=== PATIENT | male | born 1955 | race Caucasian/White ===

== ENCOUNTER 2022-10-14 04:36 | Inpatient (IN) | payer MEDICARE, OTHER ==
[~2022-10-14] VITALS: Ht 182.9 cm; Wt 88.8 kg
[2022-10-14 06:21] LABS: Albumin 3.7 g/dL (3.4-5.0); Calcium 9.1 mg/dL (8.5-10.1); Potassium 3.8 mmol/L (3.5-5.1)
[2022-10-14 06:24] LABS: BUN/Creatinine Ratio 17.6 (10.0-20.0); Bilirubin, Total 0.8 mg/dL (0.2-1.0); Total Protein 7.2 g/dL (6.4-8.2)
[2022-10-14 06:25] LABS: Basophils # (auto) 0.1 10 ^3/uL (0-0.2); Basophils % (auto) 0.4 % (0.0-2.0); Eosinophils # (auto) 0.2 10 ^3/uL (0-0.8); Eosinophils % (auto) 1.3 % (0.0-7.0); Hematocrit 44.9 % (41.0-53.0); Hemoglobin 15.6 g/dL (13.5-17.5); Lymphocytes # (auto) 1.4 10 ^3/uL (0.4-5.4); Lymphocytes % (auto) 9.5 % (10.0-50.0); Mean Corpuscular Hemoglobin 31.8 pg (28.0-32.0); Mean Corpuscular Hgb Conc. 34.7 g/dL (32.0-36.0); Mean Corpuscular Volume 91.5 fL (80.0-100.0); Monocytes # (auto) 1.3 10 ^3/uL (0-1.3); Monocytes % (auto) 9.3 % (0.0-12.0); Neutrophils # (auto) 11.4 10 ^3/uL (1.6-8.6); Neutrophils % (auto) 79.5 % (37.0-80.0); White Blood Cell 14.3 10^3/uL (4.4-10.8)
[2022-10-14] MEDS ORDERED: ONDANSETRON ODT 4 MG TAB PO ONE (07:15)
[2022-10-14] MEDS ORDERED: MAALOX PLUS or MAALOX 30 ML PO ONE (07:15)
[2022-10-14 07:41] LABS: Urine Bacteria NONE SEEN /hpf (None Seen); Urine Blood Negative /uL (Negative); Urine Specific Gravity 1.023 (1.001-1.035); Urine WBC 1 /hpf (0 - 3)
[2022-10-14] MEDS ORDERED: SODIUM CHLORIDE 0.9% 1,000 ML IV ONE (08:30)
[2022-10-14 08:43] LABS: INR 0.97 (0.9-1.15)
[2022-10-14] MEDS: SODIUM CHLORIDE 0.9% 1,000 ML IV SCH ×2 (13:15→22:58)
[2022-10-14] MEDS ORDERED: NITROGLYCERIN 0.4 MG SL TAB SL PRN (13:15)
[2022-10-14] MEDS ORDERED: MORPHINE SULFATE INJ 2 MG/ml SYRG IV PRN ×2 (13:15)
[2022-10-14] MEDS ORDERED: ONDANSETRON HCL 4 MG/2 ML VIAL IV PRN (13:15)
[2022-10-14] MEDS ORDERED: PANTOPRAZOLE 40 MG/10 ML VIAL INJ IV ONE (14:00)
[2022-10-14 14:30] LABS: INR 0.99 (0.9-1.15); Partial Thromboplastin Time 28.3 sec (24.6-33.4)
[2022-10-14] MEDS: metroNIDAZOLE 500MG/100ML 100 ML IV SCH ×2 (14:32→21:38)
[2022-10-14] MEDS: cefTRIAXone 1GM/50ML D5W 50 ML IV SCH (14:32)
[2022-10-14 16:55] LABS: Alcohol, Urine < 3.0 mg/dL (0-10); Amphetamine Screen, Urine NEGATIVE (NEGATIVE); Barbiturate Scree,Urine NEGATIVE (NEGATIVE); Benzodiazephine Screen, Urine NEGATIVE (NEGATIVE); Cannabinoid Screen, Urine NEGATIVE (NEGATIVE); Cocaine Screen, Urine NEGATIVE (NEGATIVE); Opiate Scree,Urine NEGATIVE (NEGATIVE); Phencyclidine Screen, Urine NEGATIVE (NEGATIVE)
[2022-10-14 17:55] VITALS: BP 157/74
[2022-10-14 22:00] VITALS: BP 136/73
[2022-10-15 05:00] VITALS: BP 131/66
[2022-10-15] MEDS: metroNIDAZOLE 500MG/100ML 100 ML IV SCH ×3 (05:34→21:31)
[2022-10-15 06:15] LABS: Basophils # (auto) 0 10 ^3/uL (0-0.2); Basophils % (auto) 0.3 % (0.0-2.0); Eosinophils # (auto) 0.2 10 ^3/uL (0-0.8); Eosinophils % (auto) 1.9 % (0.0-7.0); Hematocrit 41.2 % (41.0-53.0); Hemoglobin 14.3 g/dL (13.5-17.5); Lymphocytes # (auto) 1.7 10 ^3/uL (0.4-5.4); Lymphocytes % (auto) 14.1 % (10.0-50.0); Mean Corpuscular Hemoglobin 32.1 pg (28.0-32.0); Mean Corpuscular Hgb Conc. 34.9 g/dL (32.0-36.0); Mean Corpuscular Volume 92.1 fL (80.0-100.0); Monocytes # (auto) 1.4 10 ^3/uL (0-1.3); Neutrophils # (auto) 8.6 10 ^3/uL (1.6-8.6); Neutrophils % (auto) 71.7 % (37.0-80.0); Red Blood Cells 4.47 10^6/uL (4.5-5.90); Red Cell Distribution Width 12.2 % (11.8-14.3)
[2022-10-15 06:24] LABS: Albumin 2.9 g/dL (3.4-5.0); Calcium 8.1 mg/dL (8.5-10.1); Potassium 3.8 mmol/L (3.5-5.1)
[2022-10-15 06:29] LABS: BUN/Creatinine Ratio 16.8 (10.0-20.0); Bilirubin, Total 1.5 mg/dL (0.2-1.0); Total Protein 6.2 g/dL (6.4-8.2)
[2022-10-15 08:00] VITALS: BP 134/62
[2022-10-15] MEDS: cefTRIAXone 1GM/50ML D5W 50 ML IV SCH (08:49)
[2022-10-15] MEDS: SODIUM CHLORIDE 0.9% 1,000 ML IV SCH ×2 (08:49→21:32)
[2022-10-15 08:53] VITALS: BP 115/54
[2022-10-15] MEDS: PANTOPRAZOLE 40 MG/10 ML VIAL INJ IV SCH (10:42)
[2022-10-15 12:35] VITALS: BP 134/62
[2022-10-15 13:37] LABS: Hepatitis C Antibody Negative (Negative)
[2022-10-15 17:21] VITALS: BP 121/59
[2022-10-15 22:00] VITALS: BP 114/65
[2022-10-16 05:00] VITALS: BP 130/63
[2022-10-16] MEDS: SODIUM CHLORIDE 0.9% 1,000 ML IV SCH ×2 (05:21→14:13)
[2022-10-16] MEDS: metroNIDAZOLE 500MG/100ML 100 ML IV SCH ×3 (05:23→22:26)
[2022-10-16 05:58] LABS: Potassium 3.8 mmol/L (3.5-5.1)
[2022-10-16 06:03] LABS: Albumin 2.7 g/dL (3.4-5.0); BUN/Creatinine Ratio 16.8 (10.0-20.0); Calcium 7.9 mg/dL (8.5-10.1); Total Protein 5.8 g/dL (6.4-8.2)
[2022-10-16 06:25] LABS: Basophils # (auto) 0 10 ^3/uL (0-0.2); Basophils % (auto) 0.5 % (0.0-2.0); Eosinophils # (auto) 0.4 10 ^3/uL (0-0.8); Hematocrit 40.2 % (41.0-53.0); Hemoglobin 13.6 g/dL (13.5-17.5); Lymphocytes # (auto) 1.4 10 ^3/uL (0.4-5.4); Lymphocytes % (auto) 17.7 % (10.0-50.0); Mean Corpuscular Hemoglobin 32.1 pg (28.0-32.0); Mean Corpuscular Hgb Conc. 33.9 g/dL (32.0-36.0); Mean Corpuscular Volume 94.8 fL (80.0-100.0); Monocytes # (auto) 0.9 10 ^3/uL (0-1.3); Monocytes % (auto) 10.6 % (0.0-12.0); Neutrophils # (auto) 5.4 10 ^3/uL (1.6-8.6); Neutrophils % (auto) 66.2 % (37.0-80.0); Nucleated Red Blood Cells % 0.1 %; Red Blood Cells 4.24 10^6/uL (4.5-5.90); White Blood Cell 8.2 10^3/uL (4.4-10.8)
[2022-10-16] MEDS ORDERED: BUPIVACAINE 0.25% INJ 50ML VIAL ONE (06:51)
[2022-10-16] MEDS ORDERED: LIDOCAINE 1%-Mpf/Epinephrine 1:200,000 ONE (06:51)
[2022-10-16] MEDS ORDERED: ceFAZolin 1GM/50ML 100 ML IV ONE (07:16)
[2022-10-16] MEDS ORDERED: SUCCINYLCHOLINE CHLORIDE 20 MG/ML 10ML VIAL IV ONE (07:37)
[2022-10-16] MEDS ORDERED: MIDAZOLAM HCL 2MG/2ML 2ml VIAL (1mg/ml) ONE (07:39)
[2022-10-16] MEDS ORDERED: MEPERIDINE HCL (50 MG/ML) 1 ML VIAL ONE (07:39)
[2022-10-16] MEDS ORDERED: fentaNYL CITRATE 100 MCG/2 ML VL ONE (07:39)
[2022-10-16 08:00] VITALS: BP 146/68
[2022-10-16] MEDS ORDERED: PROPOFOL 10 MG/ML 20 ML IV ONE (08:17)
[2022-10-16] MEDS ORDERED: DexAMETHasone SOD PHOS 10MG/1ML VIAL INJ ONE (08:17)
[2022-10-16] MEDS ORDERED: ONDANSETRON HCL 4 MG/2 ML VIAL ONE (08:31)
[2022-10-16] MEDS ORDERED: ROCURONIUM 10MG/ML 10ML VIAL IV ONE (08:32)
[2022-10-16] MEDS ORDERED: SUGAMMADEX 200mg/2ml Vial (100MG/ML) IV ONE (09:37)
[2022-10-16] MEDS ORDERED: HYDROmorphone HCL 2 MG/ML VL/or syr IV PRN (09:45)
[2022-10-16] MEDS ORDERED: MORPHINE SULFATE 4 MG/ML SYR/VIAL IV PRN (10:15)
[2022-10-16] MEDS ORDERED: hydrALAZINE HCL 20 MG/ML VL IV PRN (10:15)
[2022-10-16] MEDS ORDERED: MIDAZOLAM HCL 2MG/2ML 2ml VIAL (1mg/ml) IV PRN (10:15)
[2022-10-16] MEDS ORDERED: ePHEDrine SULFATE 50 MG/ML AMP IV PRN (10:15)
[2022-10-16] MEDS ORDERED: ONDANSETRON HCL 4 MG/2 ML VIAL IV PRN (10:15)
[2022-10-16] MEDS ORDERED: LABETALOL HCL 5 MG/ML 4ML SYRINGE IV PRN (10:15)
[2022-10-16] MEDS: HYDROmorphone HCL 2 MG/ML VL/or syr IV PRN ×2 (10:57→11:08)
[2022-10-16] MEDS: PANTOPRAZOLE 40 MG/10 ML VIAL INJ IV SCH (11:35)
[2022-10-16] MEDS: cefTRIAXone 1GM/50ML D5W 50 ML IV SCH (11:49)
[2022-10-16 13:00] VITALS: BP 165/73
[2022-10-16] MEDS: HYDROcodone-ACET 5/325MG TAB PO PRN (14:01)
[2022-10-16 16:38] VITALS: BP 157/76
[2022-10-16] MEDS: hydrALAZINE HCL 20 MG/ML VL IV PRN (17:35)
[2022-10-16 18:34] VITALS: BP 147/70
[2022-10-16 22:00] VITALS: BP 150/68
[2022-10-17] VITALS (7 sets, daily range): BP systolic 103–173; BP diastolic 58–76
[2022-10-17] MEDS: SODIUM CHLORIDE 0.9% 1,000 ML IV SCH ×2 (05:45→11:15)
[2022-10-17] MEDS: metroNIDAZOLE 500MG/100ML 100 ML IV SCH ×3 (05:45→21:50)
[2022-10-17 05:49] LABS: Basophils # (auto) 0 10 ^3/uL (0-0.2); Basophils % (auto) 0.1 % (0.0-2.0); Eosinophils # (auto) 0 10 ^3/uL (0-0.8); Eosinophils % (auto) 0.1 % (0.0-7.0); Hematocrit 37.5 % (41.0-53.0); Hemoglobin 12.9 g/dL (13.5-17.5); Mean Corpuscular Hemoglobin 31.8 pg (28.0-32.0); Mean Corpuscular Hgb Conc. 34.4 g/dL (32.0-36.0); Mean Corpuscular Volume 92.4 fL (80.0-100.0); Monocytes % (auto) 6.4 % (0.0-12.0); Neutrophils # (auto) 14.4 10 ^3/uL (1.6-8.6); Neutrophils % (auto) 87.4 % (37.0-80.0); Red Blood Cells 4.06 10^6/uL (4.5-5.90); Red Cell Distribution Width 12.2 % (11.8-14.3); White Blood Cell 16.5 10^3/uL (4.4-10.8)
[2022-10-17 06:21] LABS: Potassium 4.4 mmol/L (3.5-5.1)
[2022-10-17 06:31] LABS: Albumin 2.6 g/dL (3.4-5.0); Bilirubin, Total 0.5 mg/dL (0.2-1.0); Calcium 7.8 mg/dL (8.5-10.1); Total Protein 5.6 g/dL (6.4-8.2)
[2022-10-17] MEDS: HYDROcodone-ACET 5/325MG TAB PO PRN (09:08)
[2022-10-17] MEDS: hydrALAZINE HCL 20 MG/ML VL IV PRN ×2 (09:09→18:18)
[2022-10-17] MEDS: cefTRIAXone 1GM/50ML D5W 50 ML IV SCH (09:09)
[2022-10-18 05:00] VITALS: BP 160/69
[2022-10-18] MEDS: metroNIDAZOLE 500MG/100ML 100 ML IV SCH (05:35)
[2022-10-18 05:45] VITALS: BP 150/68
[2022-10-18 06:32] LABS: Basophils # (auto) 0 10 ^3/uL (0-0.2); Basophils % (auto) 0.7 % (0.0-2.0); Eosinophils # (auto) 0 10 ^3/uL (0-0.8); Eosinophils % (auto) 0.1 % (0.0-7.0); Hematocrit 37.2 % (41.0-53.0); Hemoglobin 12.9 g/dL (13.5-17.5); Lymphocytes # (auto) 0.9 10 ^3/uL (0.4-5.4); Lymphocytes % (auto) 13.7 % (10.0-50.0); Mean Corpuscular Hemoglobin 31.9 pg (28.0-32.0); Mean Corpuscular Hgb Conc. 34.6 g/dL (32.0-36.0); Mean Corpuscular Volume 92.3 fL (80.0-100.0); Monocytes # (auto) 0.7 10 ^3/uL (0-1.3); Monocytes % (auto) 10.7 % (0.0-12.0); Neutrophils # (auto) 4.8 10 ^3/uL (1.6-8.6); Neutrophils % (auto) 74.8 % (37.0-80.0); Red Blood Cells 4.03 10^6/uL (4.5-5.90); Red Cell Distribution Width 12.2 % (11.8-14.3); White Blood Cell 6.4 10^3/uL (4.4-10.8)
[2022-10-18 06:39] LABS: Potassium 3.7 mmol/L (3.5-5.1)
[2022-10-18 06:48] LABS: Albumin 2.6 g/dL (3.4-5.0); BUN/Creatinine Ratio 9.2 (10.0-20.0); Bilirubin, Total 0.4 mg/dL (0.2-1.0); Calcium 7.9 mg/dL (8.5-10.1); Total Protein 5.4 g/dL (6.4-8.2)
[2022-10-18 08:10] VITALS: BP 146/77
[2022-10-18] MEDS: cefTRIAXone 1GM/50ML D5W 50 ML IV SCH (08:47)
[2022-10-18] MEDS ORDERED: LEVO750T8 PO (11:58)
[2022-10-18] MEDS ORDERED: TRAM50TA2 PO (11:58)
[2022-10-18] MEDS ORDERED: METR375C PO (11:58)
[2022-10-18] MEDS ORDERED: LISI20TA56 PO (12:02)
[2022-10-18 12:33] VITALS: BP 130/82
== END 2022-10-18 13:25 | disposition home or self-care (01) | DRG 854 ==
LOC: ER 04:36 → TELE 13:35 → TELE-WESTW 15:33 → WEST WING 10-15 13:51
PROVIDERS: ADMIT Nurse Practitioner Family; ATTEND Internal Medicine
PROC: 0FT44ZZ Resection of Gallbladder, Percutaneous Endoscopic Approach (ICD-10-PCS; principal; 2022-10-16 07:43)
DX: A41.9 Sepsis, unspecified organism (principal); K80.00 Calculus of gallbladder with acute cholecystitis without obstruction; I16.0 Hypertensive urgency; N20.0 Calculus of kidney; I71.43 Infrarenal abdominal aortic aneurysm, without rupture; N21.0 Calculus in bladder; I10 Essential (primary) hypertension; Z79.899 Other long term (current) drug therapy; Z72.0 Tobacco use; Z59.00 Homelessness unspecified; Z83.3 Family history of diabetes mellitus
CPT/HCPCS: 36415; 71045; 74176; 76705; 78226; 80053; 80061; 80307; 81001; 82270; 82378; 83036; 83690; 83735; 83880; 84443; 85025; 85048; 85610; 85730; 86141; 86803; 86850; 86900; 86901; 87040; 87045; 87086; 87340; 87427; 93005; 93306; 96361; 96365; 96375; 96376; C9113; G0378; J0330; J0690; J0696; J1100; J2250; J2405; J2704; J3490; Q0162

== ENCOUNTER 2022-11-13 07:41 | Inpatient (IN) | payer MEDICARE ==
[~2022-11-13] VITALS: Ht 182.9 cm; Wt 84.4 kg
[~2022-11-13 07:41] MED LIST: LEVO750T8 PO; LISI20TA56 PO; METR375C PO; TRAM50TA2 PO
[2022-11-13] MEDS ORDERED: IOHEXOL 300 MG/ML 100ML BOTTLE IJ ONE (07:57)
[2022-11-13] MEDS ORDERED: SODIUM CHLORIDE 0.9% 1,000 ML IVB ONE (08:00)
[2022-11-13] MEDS ORDERED: ONDANSETRON HCL 4 MG/2 ML VIAL IV ONE (08:00)
[2022-11-13] MEDS ORDERED: MORPHINE SULFATE 4 MG/ML SYR/VIAL IV ONE (08:00)
[2022-11-13 08:15] LABS: Basophils # (auto) 0.1 10 ^3/uL (0-0.2); Basophils % (auto) 0.4 % (0.0-2.0); Eosinophils # (auto) 0 10 ^3/uL (0-0.8); Eosinophils % (auto) 0.2 % (0.0-7.0); Hematocrit 47.1 % (41.0-53.0); Lymphocytes # (auto) 1.8 10 ^3/uL (0.4-5.4); Lymphocytes % (auto) 8.8 % (10.0-50.0); Mean Corpuscular Hemoglobin 31.2 pg (28.0-32.0); Mean Corpuscular Hgb Conc. 33.9 g/dL (32.0-36.0); Mean Corpuscular Volume 92.2 fL (80.0-100.0); Monocytes # (auto) 0.9 10 ^3/uL (0-1.3); Monocytes % (auto) 4.4 % (0.0-12.0); Neutrophils # (auto) 17.2 10 ^3/uL (1.6-8.6); Neutrophils % (auto) 86.2 % (37.0-80.0); Nucleated Red Blood Cells % 0.1 %; Red Blood Cells 5.11 10^6/uL (4.5-5.90); Red Cell Distribution Width 12.4 % (11.8-14.3)
[2022-11-13 08:24] LABS: Urine Bacteria NONE SEEN /hpf (None Seen); Urine Blood Negative /uL (Negative); Urine Mucus FEW (None Seen); Urine WBC 1 /hpf (0 - 3)
[2022-11-13] MEDS ORDERED: MAALOX PLUS or MAALOX 30 ML PO ONE (08:30)
[2022-11-13 08:59] LABS: Albumin 4.2 g/dL (3.4-5.0); Calcium 9.3 mg/dL (8.5-10.1); Magnesium 2.8 mg/dL (1.6-2.6); Potassium 4.1 mmol/L (3.5-5.1)
[2022-11-13 09:02] LABS: BUN/Creatinine Ratio 20.1 (10.0-20.0); Bilirubin, Total 1.1 mg/dL (0.2-1.0)
[2022-11-13] MEDS ORDERED: MORPHINE SULFATE INJ 2 MG/ml SYRG IV PRN (10:30)
[2022-11-13] MEDS ORDERED: DEXTROSE (50%) 50ML SYRG IV PRN (10:30)
[2022-11-13] MEDS ORDERED: ONDANSETRON HCL 4 MG/2 ML VIAL IV PRN (10:30)
[2022-11-13] MEDS ORDERED: SODIUM CHLORIDE 0.9% 1,000 ML IV ONE (10:45)
[2022-11-13] MEDS: SODIUM CHLORIDE 0.9% 1,000 ML IV SCH ×2 (10:50→19:19)
[2022-11-13] MEDS: PIPERACILLIN-TAZOB 3.375GM 100 ML IV SCH ×2 (11:34→19:15)
[2022-11-13] MEDS: InsuLIN REG 1unit/0.01ml Soln (100units/ml) SC SCH ×2 (11:45→19:45)
[2022-11-13] MEDS: ACCU-CHEK COMFORT CURVE STRIP VI SCH ×2 (11:45→19:30)
[2022-11-13 12:04] LABS: INR 1.03 (0.9-1.15)
[2022-11-13] MEDS ORDERED: metroNIDAZOLE 500MG/100ML 100 ML IV SCH (14:00)
[2022-11-13 23:20] VITALS: BP 140/75
[2022-11-14] MEDS: ACCU-CHEK COMFORT CURVE STRIP VI SCH ×4 (00:09→17:22)
[2022-11-14] MEDS: SODIUM CHLORIDE 0.9% 1,000 ML IV SCH ×3 (03:10→22:29)
[2022-11-14] MEDS: PIPERACILLIN-TAZOB 3.375GM 100 ML IV SCH ×4 (04:04→22:22)
[2022-11-14 05:00] VITALS: BP 136/82
[2022-11-14 05:51] LABS: Basophils # (auto) 0 10 ^3/uL (0-0.2); Basophils % (auto) 0.3 % (0.0-2.0); Eosinophils # (auto) 0.2 10 ^3/uL (0-0.8); Eosinophils % (auto) 1.9 % (0.0-7.0); Hematocrit 37.4 % (41.0-53.0); Hemoglobin 12.8 g/dL (13.5-17.5); Lymphocytes # (auto) 1.7 10 ^3/uL (0.4-5.4); Lymphocytes % (auto) 13.7 % (10.0-50.0); Mean Corpuscular Hemoglobin 31.3 pg (28.0-32.0); Mean Corpuscular Hgb Conc. 34.1 g/dL (32.0-36.0); Mean Corpuscular Volume 91.9 fL (80.0-100.0); Monocytes # (auto) 0.8 10 ^3/uL (0-1.3); Monocytes % (auto) 6.1 % (0.0-12.0); Neutrophils # (auto) 9.9 10 ^3/uL (1.6-8.6); Nucleated Red Blood Cells % 0.1 %; Red Blood Cells 4.07 10^6/uL (4.5-5.90); Red Cell Distribution Width 12.6 % (11.8-14.3); White Blood Cell 12.7 10^3/uL (4.4-10.8)
[2022-11-14] MEDS: InsuLIN REG 1unit/0.01ml Soln (100units/ml) SC SCH ×5 (06:00→23:47)
[2022-11-14 06:06] LABS: Potassium 4.5 mmol/L (3.5-5.1)
[2022-11-14 06:14] LABS: Albumin 3.4 g/dL (3.4-5.0); BUN/Creatinine Ratio 29.4 (10.0-20.0); Bilirubin, Total 1.3 mg/dL (0.2-1.0); Calcium 8.4 mg/dL (8.5-10.1); Total Protein 6.5 g/dL (6.4-8.2)
[2022-11-14 08:00] VITALS: BP 138/72
[2022-11-14] MEDS ORDERED: cefTRIAXone 1GM/50ML D5W 50 ML IV SCH (09:00)
[2022-11-14] MEDS: LISINOPRIL 20 MG TAB PO SCH (09:15)
[2022-11-14] MEDS: PANTOPRAZOLE 40 MG/10 ML VIAL INJ IV SCH (09:16)
[2022-11-14 10:15] LABS: Hepatitis C Antibody Negative (Negative)
[2022-11-14 12:00] VITALS: BP 122/68
[2022-11-14] MEDS ORDERED: GASTROGRAFIN 120 ML SOL ONE (13:13)
[2022-11-14 16:00] VITALS: BP 155/87
[2022-11-14 17:15] VITALS: BP 139/84
[2022-11-14 22:00] VITALS: BP 136/77
[2022-11-15] MEDS: PIPERACILLIN-TAZOB 3.375GM 100 ML IV SCH ×4 (04:00→21:58)
[2022-11-15] MEDS: SODIUM CHLORIDE 0.9% 1,000 ML IV SCH ×3 (04:18→20:50)
[2022-11-15 05:00] VITALS: BP 123/59
[2022-11-15] MEDS: InsuLIN REG 1unit/0.01ml Soln (100units/ml) SC SCH ×3 (06:00→17:37)
[2022-11-15] MEDS: ACCU-CHEK COMFORT CURVE STRIP VI SCH ×4 (06:06→17:37)
[2022-11-15 09:00] VITALS: BP 130/63
[2022-11-15] MEDS: PANTOPRAZOLE 40 MG/10 ML VIAL INJ IV SCH (09:12)
[2022-11-15] MEDS: LISINOPRIL 20 MG TAB PO SCH (09:12)
[2022-11-15] MEDS ORDERED: TPN PER PHARMACY 0 ML IV SCH (10:00)
[2022-11-15 10:19] LABS: Potassium 4.2 mmol/L (3.5-5.1)
[2022-11-15 10:20] LABS: Albumin 3.6 g/dL (3.4-5.0); Calcium 8.7 mg/dL (8.5-10.1); Magnesium 2.6 mg/dL (1.6-2.6)
[2022-11-15 10:26] LABS: BUN/Creatinine Ratio 24.1 (10.0-20.0); Bilirubin, Total 1.9 mg/dL (0.2-1.0); Phosphorus 3.3 mg/dL (2.5-4.90); Total Protein 7.1 g/dL (6.4-8.2)
[2022-11-15] MEDS ORDERED: LIDOCAINE 1% (LOCAL ANESTH.) PF 5ml SDV ID ONE (13:15)
[2022-11-15 14:00] VITALS: BP 140/75
[2022-11-15 17:00] VITALS: BP 127/67
[2022-11-15] MEDS ORDERED: TPN PER PHARMACY IV NR ×8 (20:00)
[2022-11-15] MEDS: SODIUM CHLOR 0.9% PF (SALINE LOCK) 10ML VIAL/SYR IV SCH (21:58)
[2022-11-15 22:00] VITALS: BP 124/65
[2022-11-16] MEDS ORDERED: DEXTROSE (50%) 50ML SYRG IV SCH
[2022-11-16] MEDS: ACCU-CHEK COMFORT CURVE STRIP VI SCH ×4 (00:40→17:48)
[2022-11-16] MEDS: PIPERACILLIN-TAZOB 3.375GM 100 ML IV SCH ×4 (04:01→22:04)
[2022-11-16 05:00] VITALS: BP 138/49
[2022-11-16] MEDS: SODIUM CHLORIDE 0.9% 1,000 ML IV SCH ×3 (05:10→22:02)
[2022-11-16] MEDS: InsuLIN REG 1unit/0.01ml Soln (100units/ml) SC SCH ×4 (05:24→17:48)
[2022-11-16 05:51] LABS: Basophils # (auto) 0 10 ^3/uL (0-0.2); Basophils % (auto) 0.6 % (0.0-2.0); Eosinophils # (auto) 0.3 10 ^3/uL (0-0.8); Eosinophils % (auto) 3.6 % (0.0-7.0); Hematocrit 35.3 % (41.0-53.0); Hemoglobin 11.8 g/dL (13.5-17.5); Lymphocytes # (auto) 1.6 10 ^3/uL (0.4-5.4); Lymphocytes % (auto) 20.5 % (10.0-50.0); Mean Corpuscular Hemoglobin 31.3 pg (28.0-32.0); Mean Corpuscular Hgb Conc. 33.5 g/dL (32.0-36.0); Mean Corpuscular Volume 93.4 fL (80.0-100.0); Monocytes # (auto) 0.7 10 ^3/uL (0-1.3); Monocytes % (auto) 9.3 % (0.0-12.0); Neutrophils # (auto) 5.2 10 ^3/uL (1.6-8.6); Red Blood Cells 3.78 10^6/uL (4.5-5.90); Red Cell Distribution Width 12.5 % (11.8-14.3); White Blood Cell 7.9 10^3/uL (4.4-10.8)
[2022-11-16 06:06] LABS: Albumin 2.7 g/dL (3.4-5.0); Calcium 7.4 mg/dL (8.5-10.1); Magnesium 2.3 mg/dL (1.6-2.6); Potassium 3.5 mmol/L (3.5-5.1)
[2022-11-16 06:09] LABS: BUN/Creatinine Ratio 22.6 (10.0-20.0); Bilirubin, Total 1.4 mg/dL (0.2-1.0); Total Protein 5.8 g/dL (6.4-8.2)
[2022-11-16 09:00] VITALS: BP 144/60
[2022-11-16] MEDS: LISINOPRIL 20 MG TAB PO SCH (10:00)
[2022-11-16] MEDS: PANTOPRAZOLE 40 MG/10 ML VIAL INJ IV SCH (10:31)
[2022-11-16] MEDS: SODIUM CHLOR 0.9% PF (SALINE LOCK) 10ML VIAL/SYR IV SCH ×2 (10:32→22:01)
[2022-11-16 13:06] VITALS: BP 135/50
[2022-11-16 17:00] VITALS: BP 141/73
[2022-11-16] MEDS ORDERED: TPN PER PHARMACY IV NR ×10 (20:00)
[2022-11-16 22:00] VITALS: BP 131/53
[2022-11-17] MEDS: PIPERACILLIN-TAZOB 3.375GM 100 ML IV SCH ×4 (04:16→22:12)
[2022-11-17 05:00] VITALS: BP 116/68
[2022-11-17] MEDS: InsuLIN REG 1unit/0.01ml Soln (100units/ml) SC SCH ×4 (05:54→17:43)
[2022-11-17] MEDS: ACCU-CHEK COMFORT CURVE STRIP VI SCH ×4 (05:54→17:43)
[2022-11-17] MEDS: SODIUM CHLORIDE 0.9% 1,000 ML IV SCH ×3 (06:10→22:50)
[2022-11-17 06:21] LABS: Basophils # (auto) 0 10 ^3/uL (0-0.2); Basophils % (auto) 0.5 % (0.0-2.0); Eosinophils # (auto) 0.3 10 ^3/uL (0-0.8); Eosinophils % (auto) 3.5 % (0.0-7.0); Hematocrit 39.5 % (41.0-53.0); Hemoglobin 13.4 g/dL (13.5-17.5); Lymphocytes # (auto) 1.7 10 ^3/uL (0.4-5.4); Lymphocytes % (auto) 22.4 % (10.0-50.0); Mean Corpuscular Hemoglobin 31.6 pg (28.0-32.0); Mean Corpuscular Hgb Conc. 33.8 g/dL (32.0-36.0); Mean Corpuscular Volume 93.3 fL (80.0-100.0); Monocytes # (auto) 0.6 10 ^3/uL (0-1.3); Monocytes % (auto) 7.5 % (0.0-12.0); Neutrophils % (auto) 66.1 % (37.0-80.0); Nucleated Red Blood Cells % 0.2 %; Red Blood Cells 4.23 10^6/uL (4.5-5.90); Red Cell Distribution Width 12.6 % (11.8-14.3); White Blood Cell 7.5 10^3/uL (4.4-10.8)
[2022-11-17 06:48] LABS: Albumin 3.1 g/dL (3.4-5.0); Calcium 8.3 mg/dL (8.5-10.1); Potassium 3.7 mmol/L (3.5-5.1)
[2022-11-17 06:57] LABS: Bilirubin, Total 1.4 mg/dL (0.2-1.0); Phosphorus 3.5 mg/dL (2.5-4.90); Total Protein 6.8 g/dL (6.4-8.2)
[2022-11-17 08:46] VITALS: BP 145/60
[2022-11-17] MEDS: LISINOPRIL 20 MG TAB PO SCH ×2 (10:00→11:44)
[2022-11-17] MEDS: PANTOPRAZOLE 40 MG/10 ML VIAL INJ IV SCH (10:18)
[2022-11-17] MEDS: SODIUM CHLOR 0.9% PF (SALINE LOCK) 10ML VIAL/SYR IV SCH ×2 (10:24→22:12)
[2022-11-17 12:49] VITALS: BP 141/62
[2022-11-17 16:59] VITALS: BP_SYST 149; BP_SYST 159; BP_DIAS 65; BP_DIAS 67
[2022-11-17] MEDS ORDERED: FAT EMULSION IV NR ×10 (20:00)
[2022-11-17] MEDS ORDERED: SODIUM PHOSPHATES IV NR ×10 (20:00)
[2022-11-17] MEDS ORDERED: POTASSIUM CHLORIDE IV NR ×10 (20:00)
[2022-11-17] MEDS ORDERED: [UNRECOGNIZED DRUG - OTHER] IV NR ×10 (20:00)
[2022-11-17 22:00] VITALS: BP 150/66
[2022-11-18] MEDS: ACCU-CHEK COMFORT CURVE STRIP VI SCH ×4 (00:18→17:19)
[2022-11-18] MEDS: PIPERACILLIN-TAZOB 3.375GM 100 ML IV SCH ×4 (04:20→22:20)
[2022-11-18 05:00] VITALS: BP 109/66
[2022-11-18] MEDS: InsuLIN REG 1unit/0.01ml Soln (100units/ml) SC SCH ×4 (05:47→17:18)
[2022-11-18 07:06] LABS: Basophils # (auto) 0.1 10 ^3/uL (0-0.2); Basophils % (auto) 0.9 % (0.0-2.0); Eosinophils # (auto) 0.3 10 ^3/uL (0-0.8); Eosinophils % (auto) 4.3 % (0.0-7.0); Hematocrit 36.8 % (41.0-53.0); Hemoglobin 12.4 g/dL (13.5-17.5); Lymphocytes # (auto) 1.6 10 ^3/uL (0.4-5.4); Lymphocytes % (auto) 20.2 % (10.0-50.0); Mean Corpuscular Hemoglobin 31.2 pg (28.0-32.0); Mean Corpuscular Hgb Conc. 33.6 g/dL (32.0-36.0); Mean Corpuscular Volume 92.8 fL (80.0-100.0); Monocytes # (auto) 0.7 10 ^3/uL (0-1.3); Monocytes % (auto) 8.7 % (0.0-12.0); Neutrophils # (auto) 5.2 10 ^3/uL (1.6-8.6); Neutrophils % (auto) 65.9 % (37.0-80.0); Red Blood Cells 3.96 10^6/uL (4.5-5.90); Red Cell Distribution Width 12.8 % (11.8-14.3)
[2022-11-18] MEDS: SODIUM CHLORIDE 0.9% 1,000 ML IV SCH ×3 (07:10→23:50)
[2022-11-18 07:36] LABS: Potassium 3.9 mmol/L (3.5-5.1)
[2022-11-18 07:44] LABS: Albumin 2.8 g/dL (3.4-5.0); BUN/Creatinine Ratio 11.6 (10.0-20.0); Bilirubin, Total 0.9 mg/dL (0.2-1.0); Calcium 8.1 mg/dL (8.5-10.1); Magnesium 2.1 mg/dL (1.6-2.6); Phosphorus 3.2 mg/dL (2.5-4.90)
[2022-11-18 08:00] VITALS: BP 129/57
[2022-11-18 10:29] VITALS: BP 146/77
[2022-11-18] MEDS: LISINOPRIL 20 MG TAB PO SCH (11:48)
[2022-11-18] MEDS: SODIUM CHLOR 0.9% PF (SALINE LOCK) 10ML VIAL/SYR IV SCH ×2 (11:51→22:20)
[2022-11-18] MEDS: PANTOPRAZOLE 40 MG/10 ML VIAL INJ IV SCH (11:51)
[2022-11-18 12:00] VITALS: BP 119/71
[2022-11-18 16:00] VITALS: BP 155/55
[2022-11-18] MEDS ORDERED: TPN PER PHARMACY IV NR ×9 (20:00)
[2022-11-18 22:00] VITALS: BP 124/63
[2022-11-19] MEDS: PIPERACILLIN-TAZOB 3.375GM 100 ML IV SCH ×4 (04:06→22:10)
[2022-11-19 05:00] VITALS: BP 141/67
[2022-11-19 05:58] LABS: Basophils # (auto) 0.1 10 ^3/uL (0-0.2); Basophils % (auto) 1.4 % (0.0-2.0); Eosinophils # (auto) 0.3 10 ^3/uL (0-0.8); Eosinophils % (auto) 4.6 % (0.0-7.0); Hematocrit 35.8 % (41.0-53.0); Hemoglobin 12.2 g/dL (13.5-17.5); Lymphocytes # (auto) 1.8 10 ^3/uL (0.4-5.4); Mean Corpuscular Hemoglobin 31.2 pg (28.0-32.0); Mean Corpuscular Volume 91.9 fL (80.0-100.0); Monocytes # (auto) 0.6 10 ^3/uL (0-1.3); Monocytes % (auto) 8.6 % (0.0-12.0); Neutrophils # (auto) 4.4 10 ^3/uL (1.6-8.6); Neutrophils % (auto) 60.4 % (37.0-80.0); Red Cell Distribution Width 13.1 % (11.8-14.3); White Blood Cell 7.3 10^3/uL (4.4-10.8)
[2022-11-19] MEDS: InsuLIN REG 1unit/0.01ml Soln (100units/ml) SC SCH ×4 (06:00→18:00)
[2022-11-19] MEDS: ACCU-CHEK COMFORT CURVE STRIP VI SCH ×4 (06:26→18:00)
[2022-11-19 06:28] LABS: Potassium 3.7 mmol/L (3.5-5.1)
[2022-11-19 06:34] LABS: Albumin 2.9 g/dL (3.4-5.0); BUN/Creatinine Ratio 10.5 (10.0-20.0); Bilirubin, Total 0.9 mg/dL (0.2-1.0); Calcium 8.5 mg/dL (8.5-10.1); Magnesium 2.1 mg/dL (1.6-2.6); Phosphorus 3.2 mg/dL (2.5-4.90); Total Protein 6.1 g/dL (6.4-8.2)
[2022-11-19 08:00] VITALS: BP 128/60
[2022-11-19] MEDS: PANTOPRAZOLE 40 MG/10 ML VIAL INJ IV SCH (09:45)
[2022-11-19] MEDS: LISINOPRIL 20 MG TAB PO SCH (09:47)
[2022-11-19] MEDS: SODIUM CHLORIDE 0.9% 1,000 ML IV SCH ×2 (09:59→16:53)
[2022-11-19] MEDS: SODIUM CHLOR 0.9% PF (SALINE LOCK) 10ML VIAL/SYR IV SCH ×2 (10:00→22:00)
[2022-11-19] MEDS ORDERED: GOLYTELY 4L KIT PO ONE (10:15)
[2022-11-19 12:00] VITALS: BP 117/61
[2022-11-19 17:05] VITALS: BP 133/70
[2022-11-19] MEDS ORDERED: TPN PER PHARMACY IV NR ×9 (20:00)
[2022-11-19 22:00] VITALS: BP 136/105
[2022-11-20] MEDS ORDERED: POLYETHYLENE GLYCOL 17 GM PWDR PO ONE
[2022-11-20] MEDS: SODIUM CHLORIDE 0.9% 1,000 ML IV SCH ×3 (00:50→17:37)
[2022-11-20] MEDS: PIPERACILLIN-TAZOB 3.375GM 100 ML IV SCH ×4 (03:45→22:06)
[2022-11-20 05:00] VITALS: BP 120/59
[2022-11-20] MEDS: InsuLIN REG 1unit/0.01ml Soln (100units/ml) SC SCH ×4 (06:00→18:00)
[2022-11-20] MEDS: ACCU-CHEK COMFORT CURVE STRIP VI SCH ×4 (06:11→18:00)
[2022-11-20 06:22] LABS: Basophils # (auto) 0.1 10 ^3/uL (0-0.2); Basophils % (auto) 0.9 % (0.0-2.0); Eosinophils # (auto) 0.5 10 ^3/uL (0-0.8); Eosinophils % (auto) 6.2 % (0.0-7.0); Hematocrit 37.1 % (41.0-53.0); Hemoglobin 12.5 g/dL (13.5-17.5); Lymphocytes # (auto) 1.8 10 ^3/uL (0.4-5.4); Lymphocytes % (auto) 24.3 % (10.0-50.0); Mean Corpuscular Hemoglobin 31.3 pg (28.0-32.0); Mean Corpuscular Hgb Conc. 33.6 g/dL (32.0-36.0); Monocytes # (auto) 0.7 10 ^3/uL (0-1.3); Monocytes % (auto) 9.5 % (0.0-12.0); Neutrophils # (auto) 4.4 10 ^3/uL (1.6-8.6); Neutrophils % (auto) 59.1 % (37.0-80.0); Nucleated Red Blood Cells % 0.1 %; Red Cell Distribution Width 12.8 % (11.8-14.3); White Blood Cell 7.5 10^3/uL (4.4-10.8)
[2022-11-20 06:47] LABS: Potassium 4.2 mmol/L (3.5-5.1)
[2022-11-20 07:01] LABS: Albumin 3.1 g/dL (3.4-5.0); BUN/Creatinine Ratio 9.6 (10.0-20.0); Calcium 8.4 mg/dL (8.5-10.1); Magnesium 2.1 mg/dL (1.6-2.6)
[2022-11-20 07:04] LABS: Phosphorus 3.6 mg/dL (2.5-4.90); Total Protein 6.6 g/dL (6.4-8.2)
[2022-11-20 09:00] VITALS: BP 130/64
[2022-11-20] MEDS: PANTOPRAZOLE 40 MG/10 ML VIAL INJ IV SCH (09:02)
[2022-11-20] MEDS: LISINOPRIL 20 MG TAB PO SCH (09:03)
[2022-11-20] MEDS: SODIUM CHLOR 0.9% PF (SALINE LOCK) 10ML VIAL/SYR IV SCH ×2 (10:00→22:06)
[2022-11-20] MEDS ORDERED: NALOXONE HCL 0.4 MG/ML VIAL ONE (12:13)
[2022-11-20] MEDS ORDERED: FLUMAZENIL 0.1 MG/ML INJ 10ML MDV IV ONE (12:13)
[2022-11-20] MEDS ORDERED: fentaNYL CITRATE 100 MCG/2 ML VL ONE (12:14)
[2022-11-20] MEDS ORDERED: SIMETHICONE 40 MG/0.6 ML ORAL DROP ONE (12:15)
[2022-11-20 13:00] VITALS: BP 142/74
[2022-11-20] MEDS: MIDAZOLAM HCL 2MG/2ML 2ml VIAL (1mg/ml) ONE ×2 (15:48→16:03)
[2022-11-20] MEDS: diphenhdrAMINE HCL 50 MG/1 ML VL ONE ×2 (15:48→15:51)
[2022-11-20] MEDS ORDERED: TPN PER PHARMACY IV NR ×9 (20:00)
[2022-11-20 22:00] VITALS: BP 120/70
[2022-11-21] MEDS: SODIUM CHLORIDE 0.9% 1,000 ML IV SCH ×3 (01:50→18:55)
[2022-11-21] MEDS: PIPERACILLIN-TAZOB 3.375GM 100 ML IV SCH ×4 (04:19→21:46)
[2022-11-21 05:00] VITALS: BP 123/61
[2022-11-21] MEDS: InsuLIN REG 1unit/0.01ml Soln (100units/ml) SC SCH ×4 (06:00→18:13)
[2022-11-21] MEDS: ACCU-CHEK COMFORT CURVE STRIP VI SCH ×4 (06:02→18:12)
[2022-11-21 06:07] LABS: Calcium 8.3 mg/dL (8.5-10.1); Potassium 4.1 mmol/L (3.5-5.1)
[2022-11-21 06:09] LABS: BUN/Creatinine Ratio 11.7 (10.0-20.0)
[2022-11-21 06:12] LABS: Bilirubin, Total 0.9 mg/dL (0.2-1.0); Phosphorus 4.1 mg/dL (2.5-4.90); Total Protein 6.4 g/dL (6.4-8.2)
[2022-11-21 09:00] VITALS: BP 111/59
[2022-11-21] MEDS: PANTOPRAZOLE 40 MG/10 ML VIAL INJ IV SCH (09:16)
[2022-11-21] MEDS: LISINOPRIL 20 MG TAB PO SCH (09:16)
[2022-11-21] MEDS: SODIUM CHLOR 0.9% PF (SALINE LOCK) 10ML VIAL/SYR IV SCH ×2 (09:17→21:47)
[2022-11-21] MEDS ORDERED: MIDAZOLAM HCL 2MG/2ML 2ml VIAL (1mg/ml) ONE (10:31)
[2022-11-21] MEDS ORDERED: HYDROmorphone HCL 2 MG/ML VL/or syr ONE (10:31)
[2022-11-21] MEDS ORDERED: fentaNYL CITRATE 100 MCG/2 ML VL ONE ×2 (10:31→12:14)
[2022-11-21] MEDS ORDERED: ETOMIDATE (2MG/ML) 20ML VIAL IV ONE (10:35)
[2022-11-21] MEDS ORDERED: DexAMETHasone SOD PHOS 10MG/1ML VIAL INJ ONE (10:35)
[2022-11-21] MEDS ORDERED: SUCCINYLCHOLINE CHLORIDE 20 MG/ML 10ML VIAL IV ONE (10:38)
[2022-11-21] MEDS ORDERED: POVIDONE IODINE 10 % TOPICAL OINT 30GM TOP ONE (13:01)
[2022-11-21] MEDS ORDERED: LABETALOL HCL 5 MG/ML 4ML SYRINGE IV PRN (13:30)
[2022-11-21] MEDS ORDERED: ePHEDrine SULFATE 50 MG/ML AMP IV PRN (13:30)
[2022-11-21] MEDS ORDERED: ONDANSETRON HCL 4 MG/2 ML VIAL IV PRN (13:30)
[2022-11-21] MEDS ORDERED: HYDROmorphone HCL 2 MG/ML VL/or syr IV PRN (13:30)
[2022-11-21] MEDS ORDERED: MIDAZOLAM HCL 2MG/2ML 2ml VIAL (1mg/ml) IV PRN (13:30)
[2022-11-21] MEDS ORDERED: MORPHINE SULFATE 4 MG/ML SYR/VIAL IV PRN (13:30)
[2022-11-21] MEDS ORDERED: SUGAMMADEX 200mg/2ml Vial (100MG/ML) IV ONE (13:54)
[2022-11-21] MEDS ORDERED: ROCURONIUM 10MG/ML 10ML VIAL IV ONE (15:07)
[2022-11-21] MEDS ORDERED: ePHEDrine SULFATE 50 MG/ML AMP IV ONE (15:07)
[2022-11-21 16:35] VITALS: BP 126/73
[2022-11-21] MEDS: MORPHINE SULFATE INJ 2 MG/ml SYRG IV PRN (19:21)
[2022-11-21] MEDS ORDERED: TPN PER PHARMACY IV NR ×9 (20:00)
[2022-11-21 22:00] VITALS: BP 179/86
[2022-11-22] MEDS: ACCU-CHEK COMFORT CURVE STRIP VI SCH ×4 (00:03→18:02)
[2022-11-22] MEDS: InsuLIN REG 1unit/0.01ml Soln (100units/ml) SC SCH ×4 (00:08→18:00)
[2022-11-22] MEDS: MORPHINE SULFATE INJ 2 MG/ml SYRG IV PRN ×5 (00:14→20:30)
[2022-11-22 05:00] VITALS: BP 141/86
[2022-11-22] MEDS: SODIUM CHLORIDE 0.9% 1,000 ML IV SCH ×2 (05:14→11:16)
[2022-11-22] MEDS: PIPERACILLIN-TAZOB 3.375GM 100 ML IV SCH ×4 (05:15→22:59)
[2022-11-22 05:37] LABS: Magnesium 1.9 mg/dL (1.6-2.6); Potassium 4.8 mmol/L (3.5-5.1)
[2022-11-22 05:49] LABS: Albumin 2.9 g/dL (3.4-5.0); BUN/Creatinine Ratio 19.4 (10.0-20.0); Bilirubin, Total 1.4 mg/dL (0.2-1.0); Calcium 8.7 mg/dL (8.5-10.1); Phosphorus 3.2 mg/dL (2.5-4.90); Total Protein 6.6 g/dL (6.4-8.2)
[2022-11-22 09:00] VITALS: BP 127/82
[2022-11-22] MEDS: PANTOPRAZOLE 40 MG/10 ML VIAL INJ IV SCH (11:15)
[2022-11-22] MEDS: LISINOPRIL 20 MG TAB PO SCH (11:16)
[2022-11-22] MEDS: SODIUM CHLOR 0.9% PF (SALINE LOCK) 10ML VIAL/SYR IV SCH ×2 (11:18→22:59)
[2022-11-22 12:30] LABS: Phosphorus 3.1 mg/dL (2.5-4.90); Potassium 4.4 mmol/L (3.5-5.1)
[2022-11-22 13:00] VITALS: BP 125/75
[2022-11-22 17:00] VITALS: BP 138/70
[2022-11-22] MEDS ORDERED: TPN PER PHARMACY IV NR ×9 (20:00)
[2022-11-22 22:00] VITALS: BP 114/71
[2022-11-23] MEDS: SODIUM CHLORIDE 0.9% 1,000 ML IV SCH ×4 (04:54→22:40)
[2022-11-23] MEDS: PIPERACILLIN-TAZOB 3.375GM 100 ML IV SCH ×4 (04:56→22:35)
[2022-11-23] MEDS: MORPHINE SULFATE INJ 2 MG/ml SYRG IV PRN ×4 (04:56→19:26)
[2022-11-23 05:00] VITALS: BP 134/66
[2022-11-23] MEDS: InsuLIN REG 1unit/0.01ml Soln (100units/ml) SC SCH ×4 (06:00→17:25)
[2022-11-23] MEDS: ACCU-CHEK COMFORT CURVE STRIP VI SCH ×4 (06:05→17:24)
[2022-11-23 06:19] LABS: Albumin 2.8 g/dL (3.4-5.0); Calcium 8.5 mg/dL (8.5-10.1); Magnesium 2.2 mg/dL (1.6-2.6); Potassium 4.1 mmol/L (3.5-5.1)
[2022-11-23 06:24] LABS: BUN/Creatinine Ratio 22.3 (10.0-20.0); Bilirubin, Total 1.3 mg/dL (0.2-1.0); Phosphorus 3.2 mg/dL (2.5-4.90); Total Protein 6.2 g/dL (6.4-8.2)
[2022-11-23 09:00] VITALS: BP 138/72
[2022-11-23] MEDS: PANTOPRAZOLE 40 MG/10 ML VIAL INJ IV SCH (10:27)
[2022-11-23] MEDS: LISINOPRIL 20 MG TAB PO SCH (10:28)
[2022-11-23] MEDS: SODIUM CHLOR 0.9% PF (SALINE LOCK) 10ML VIAL/SYR IV SCH ×2 (11:43→22:35)
[2022-11-23 13:00] VITALS: BP 140/70
[2022-11-23] MEDS ORDERED: [UNRECOGNIZED DRUG - OTHER] IV NR ×10 (20:00)
[2022-11-23] MEDS ORDERED: FAT EMULSION IV NR ×10 (20:00)
[2022-11-23] MEDS ORDERED: SODIUM ACETATE IV NR ×10 (20:00)
[2022-11-23] MEDS ORDERED: SODIUM PHOSPHATES IV NR ×10 (20:00)
[2022-11-23 22:00] VITALS: BP 105/61
[2022-11-24] MEDS: MORPHINE SULFATE INJ 2 MG/ml SYRG IV PRN ×4 (00:16→20:32)
[2022-11-24] MEDS: InsuLIN REG 1unit/0.01ml Soln (100units/ml) SC SCH ×4 (00:28→17:48)
[2022-11-24] MEDS: ACCU-CHEK COMFORT CURVE STRIP VI SCH ×4 (00:28→18:00)
[2022-11-24 05:00] VITALS: BP 127/65
[2022-11-24] MEDS: PIPERACILLIN-TAZOB 3.375GM 100 ML IV SCH ×4 (05:15→21:23)
[2022-11-24] MEDS: SODIUM CHLORIDE 0.9% 1,000 ML IV SCH ×3 (05:16→21:23)
[2022-11-24 05:56] LABS: Basophils # (auto) 0.1 10 ^3/uL (0-0.2); Basophils % (auto) 0.8 % (0.0-2.0); Eosinophils # (auto) 0.1 10 ^3/uL (0-0.8); Eosinophils % (auto) 1.1 % (0.0-7.0); Hematocrit 33.7 % (41.0-53.0); Hemoglobin 11.4 g/dL (13.5-17.5); Lymphocytes # (auto) 0.9 10 ^3/uL (0.4-5.4); Lymphocytes % (auto) 8.9 % (10.0-50.0); Mean Corpuscular Hemoglobin 31.6 pg (28.0-32.0); Mean Corpuscular Hgb Conc. 33.9 g/dL (32.0-36.0); Monocytes # (auto) 1.3 10 ^3/uL (0-1.3); Monocytes % (auto) 12.1 % (0.0-12.0); Neutrophils # (auto) 8.2 10 ^3/uL (1.6-8.6); Neutrophils % (auto) 77.1 % (37.0-80.0); Nucleated Red Blood Cells % 0.1 %; Red Blood Cells 3.62 10^6/uL (4.5-5.90); White Blood Cell 10.6 10^3/uL (4.4-10.8)
[2022-11-24 06:16] LABS: Potassium 4.2 mmol/L (3.5-5.1)
[2022-11-24 06:25] LABS: Albumin 2.7 g/dL (3.4-5.0); BUN/Creatinine Ratio 21.4 (10.0-20.0); Bilirubin, Total 1.6 mg/dL (0.2-1.0); Calcium 8.4 mg/dL (8.5-10.1); Magnesium 2.3 mg/dL (1.6-2.6); Total Protein 6.4 g/dL (6.4-8.2)
[2022-11-24 09:00] VITALS: BP 134/61
[2022-11-24] MEDS: LISINOPRIL 20 MG TAB PO SCH (10:10)
[2022-11-24] MEDS: PANTOPRAZOLE 40 MG/10 ML VIAL INJ IV SCH (10:11)
[2022-11-24] MEDS: SODIUM CHLOR 0.9% PF (SALINE LOCK) 10ML VIAL/SYR IV SCH ×2 (10:11→21:23)
[2022-11-24 13:00] VITALS: BP 133/70
[2022-11-24 17:00] VITALS: BP 132/58
[2022-11-24] MEDS ORDERED: TPN PER PHARMACY IV NR ×11 (20:00)
[2022-11-24 22:00] VITALS: BP 119/55
[2022-11-25] MEDS: MORPHINE SULFATE INJ 2 MG/ml SYRG IV PRN ×3 (01:26→20:08)
[2022-11-25] MEDS: ACCU-CHEK COMFORT CURVE STRIP VI SCH ×4 (01:29→18:18)
[2022-11-25] MEDS: PIPERACILLIN-TAZOB 3.375GM 100 ML IV SCH (03:30)
[2022-11-25 05:00] VITALS: BP 135/64
[2022-11-25] MEDS: InsuLIN REG 1unit/0.01ml Soln (100units/ml) SC SCH ×4 (05:57→18:00)
[2022-11-25] MEDS: SODIUM CHLORIDE 0.9% 1,000 ML IV SCH ×2 (05:58→14:27)
[2022-11-25 06:21] LABS: Albumin 2.5 g/dL (3.4-5.0); Calcium 8.3 mg/dL (8.5-10.1); Potassium 3.8 mmol/L (3.5-5.1)
[2022-11-25 06:27] LABS: BUN/Creatinine Ratio 24.7 (10.0-20.0); Basophils # (auto) 0.1 10 ^3/uL (0-0.2); Basophils % (auto) 1.2 % (0.0-2.0); Bilirubin, Total 1.7 mg/dL (0.2-1.0); Eosinophils # (auto) 0.3 10 ^3/uL (0-0.8); Eosinophils % (auto) 3.7 % (0.0-7.0); Hematocrit 31.2 % (41.0-53.0); Hemoglobin 10.8 g/dL (13.5-17.5); Lymphocytes # (auto) 1.4 10 ^3/uL (0.4-5.4); Lymphocytes % (auto) 17.7 % (10.0-50.0); Mean Corpuscular Hemoglobin 32.1 pg (28.0-32.0); Mean Corpuscular Hgb Conc. 34.7 g/dL (32.0-36.0); Mean Corpuscular Volume 92.5 fL (80.0-100.0); Monocytes # (auto) 1.3 10 ^3/uL (0-1.3); Monocytes % (auto) 16.6 % (0.0-12.0); Neutrophils # (auto) 4.9 10 ^3/uL (1.6-8.6); Neutrophils % (auto) 60.8 % (37.0-80.0); Nucleated Red Blood Cells % 0.1 %; Phosphorus 3.8 mg/dL (2.5-4.90); Red Blood Cells 3.37 10^6/uL (4.5-5.90); Red Cell Distribution Width 12.9 % (11.8-14.3); Total Protein 5.6 g/dL (6.4-8.2)
[2022-11-25 08:00] VITALS: BP 146/65
[2022-11-25 09:00] VITALS: BP 146/65
[2022-11-25] MEDS: LISINOPRIL 20 MG TAB PO SCH (10:11)
[2022-11-25] MEDS: SODIUM CHLOR 0.9% PF (SALINE LOCK) 10ML VIAL/SYR IV SCH (10:11)
[2022-11-25] MEDS: PANTOPRAZOLE 40 MG/10 ML VIAL INJ IV SCH (10:11)
[2022-11-25 13:00] VITALS: BP 123/62
[2022-11-25 17:00] VITALS: BP 123/53
[2022-11-25] MEDS ORDERED: TPN PER PHARMACY IV NR ×9 (20:00)
[2022-11-25 22:00] VITALS: BP 112/52
[2022-11-26] MEDS: InsuLIN REG 1unit/0.01ml Soln (100units/ml) SC SCH ×4 (01:08→18:00)
[2022-11-26] MEDS: SODIUM CHLORIDE 0.9% 1,000 ML IV SCH ×3 (01:11→15:10)
[2022-11-26] MEDS: ACCU-CHEK COMFORT CURVE STRIP VI SCH ×4 (01:11→18:00)
[2022-11-26] MEDS: SODIUM CHLOR 0.9% PF (SALINE LOCK) 10ML VIAL/SYR IV SCH ×2 (01:12→10:46)
[2022-11-26] MEDS: MORPHINE SULFATE INJ 2 MG/ml SYRG IV PRN ×2 (02:57→06:59)
[2022-11-26 05:00] VITALS: BP 139/57
[2022-11-26 06:06] LABS: Basophils # (auto) 0.1 10 ^3/uL (0-0.2); Basophils % (auto) 0.7 % (0.0-2.0); Eosinophils # (auto) 0.3 10 ^3/uL (0-0.8); Eosinophils % (auto) 3.9 % (0.0-7.0); Hematocrit 29.4 % (41.0-53.0); Hemoglobin 10.2 g/dL (13.5-17.5); Lymphocytes % (auto) 12.5 % (10.0-50.0); Mean Corpuscular Hemoglobin 32.4 pg (28.0-32.0); Mean Corpuscular Hgb Conc. 34.7 g/dL (32.0-36.0); Mean Corpuscular Volume 93.4 fL (80.0-100.0); Monocytes # (auto) 1.2 10 ^3/uL (0-1.3); Monocytes % (auto) 15.1 % (0.0-12.0); Neutrophils # (auto) 5.5 10 ^3/uL (1.6-8.6); Neutrophils % (auto) 67.8 % (37.0-80.0); Red Blood Cells 3.15 10^6/uL (4.5-5.90); Red Cell Distribution Width 12.9 % (11.8-14.3); White Blood Cell 8.1 10^3/uL (4.4-10.8)
[2022-11-26 06:15] LABS: Potassium 3.7 mmol/L (3.5-5.1)
[2022-11-26 06:23] LABS: Albumin 2.3 g/dL (3.4-5.0); BUN/Creatinine Ratio 27.3 (10.0-20.0); Bilirubin, Total 1.5 mg/dL (0.2-1.0); Calcium 8.1 mg/dL (8.5-10.1); Magnesium 2.2 mg/dL (1.6-2.6); Phosphorus 2.9 mg/dL (2.5-4.90); Total Protein 6.1 g/dL (6.4-8.2)
[2022-11-26 09:00] VITALS: BP 121/53
[2022-11-26] MEDS: LISINOPRIL 20 MG TAB PO SCH (10:00)
[2022-11-26] MEDS: PANTOPRAZOLE 40 MG/10 ML VIAL INJ IV SCH (10:45)
[2022-11-26 13:00] VITALS: BP 139/69
[2022-11-26 17:20] VITALS: BP 117/60
[2022-11-26] MEDS ORDERED: TPN PER PHARMACY IV NR ×10 (20:00)
[2022-11-26 22:00] VITALS: BP 123/63
[2022-11-27] MEDS: SODIUM CHLOR 0.9% PF (SALINE LOCK) 10ML VIAL/SYR IV SCH ×3 (01:17→22:19)
[2022-11-27] MEDS: ACCU-CHEK COMFORT CURVE STRIP VI SCH ×3 (01:17→12:00)
[2022-11-27] MEDS: SODIUM CHLORIDE 0.9% 1,000 ML IV SCH ×3 (01:17→16:10)
[2022-11-27] MEDS: InsuLIN REG 1unit/0.01ml Soln (100units/ml) SC SCH ×3 (01:18→12:00)
[2022-11-27 05:00] VITALS: BP 119/65
[2022-11-27 06:19] LABS: Basophils # (auto) 0 10 ^3/uL (0-0.2); Basophils % (auto) 0.5 % (0.0-2.0); Eosinophils # (auto) 0.2 10 ^3/uL (0-0.8); Eosinophils % (auto) 2.4 % (0.0-7.0); Hematocrit 28.4 % (41.0-53.0); Hemoglobin 9.8 g/dL (13.5-17.5); Lymphocytes # (auto) 1.3 10 ^3/uL (0.4-5.4); Lymphocytes % (auto) 15.9 % (10.0-50.0); Mean Corpuscular Hemoglobin 31.6 pg (28.0-32.0); Mean Corpuscular Hgb Conc. 34.5 g/dL (32.0-36.0); Mean Corpuscular Volume 91.6 fL (80.0-100.0); Monocytes # (auto) 1.1 10 ^3/uL (0-1.3); Monocytes % (auto) 14.1 % (0.0-12.0); Neutrophils # (auto) 5.4 10 ^3/uL (1.6-8.6); Neutrophils % (auto) 67.1 % (37.0-80.0); Red Cell Distribution Width 12.8 % (11.8-14.3)
[2022-11-27 06:39] LABS: Potassium 3.8 mmol/L (3.5-5.1)
[2022-11-27 06:47] LABS: Albumin 2.3 g/dL (3.4-5.0); BUN/Creatinine Ratio 29.5 (10.0-20.0); Bilirubin, Total 1.8 mg/dL (0.2-1.0); Calcium 8.2 mg/dL (8.5-10.1); Magnesium 2.2 mg/dL (1.6-2.6); Phosphorus 2.7 mg/dL (2.5-4.90); Total Protein 6.1 g/dL (6.4-8.2)
[2022-11-27 09:00] VITALS: BP 133/62
[2022-11-27] MEDS: PANTOPRAZOLE 40 MG/10 ML VIAL INJ IV SCH (09:58)
[2022-11-27] MEDS: LISINOPRIL 20 MG TAB PO SCH (10:00)
[2022-11-27 13:00] VITALS: BP 115/62
[2022-11-27 17:00] VITALS: BP 99/66
[2022-11-27] MEDS ORDERED: TPN PER PHARMACY IV NR ×9 (20:00)
[2022-11-27 22:00] VITALS: BP 136/62
[2022-11-28] MEDS: SODIUM CHLORIDE 0.9% 1,000 ML IV SCH ×2 (00:30→08:50)
[2022-11-28 05:12] VITALS: BP 139/63
[2022-11-28 09:00] VITALS: BP 131/61
[2022-11-28] MEDS: LISINOPRIL 20 MG TAB PO SCH (10:00)
[2022-11-28] MEDS ORDERED: HYDR-4902 PO (10:23)
[2022-11-28] MEDS ORDERED: MET500T PO (10:23)
[2022-11-28] MEDS ORDERED: LEVO500T91 PO (10:23)
[2022-11-28] MEDS: SODIUM CHLOR 0.9% PF (SALINE LOCK) 10ML VIAL/SYR IV SCH (10:59)
[2022-11-28] MEDS: PANTOPRAZOLE 40 MG/10 ML VIAL INJ IV SCH (10:59)
[2022-11-28 12:30] VITALS: BP 133/64
[2022-11-28 12:37] VITALS: BP 131/61
== END 2022-11-28 13:15 | disposition home or self-care (01) | DRG 854 ==
LOC: ER 07:41 → OVERFLOW 10:37 → EAST 21:43 → TELE-EAST 11-16 12:08 → EAST 11-28 04:22
PROVIDERS: ADMIT Family Medicine; ATTEND Family Medicine
PROC: 0D9670Z Drainage of Stomach with Drainage Device, Via Natural or Artificial Opening (ICD-10-PCS; 2022-11-14)
PROC: 02HV33Z Insertion of Infusion Device into Superior Vena Cava, Percutaneous Approach (ICD-10-PCS; 2022-11-15)
PROC: B548ZZA Ultrasonography of Superior Vena Cava, Guidance (ICD-10-PCS; 2022-11-15)
PROC: 0DBP8ZZ Excision of Rectum, Via Natural or Artificial Opening Endoscopic (ICD-10-PCS; principal; 2022-11-20 15:41)
PROC: 0DBL0ZZ Excision of Transverse Colon, Open Approach (ICD-10-PCS; 2022-11-21)
DX: A41.9 Sepsis, unspecified organism (principal); K56.609 Unspecified intestinal obstruction, unspecified as to partial versus complete obstruction; N17.9 Acute kidney failure, unspecified; E11.65 Type 2 diabetes mellitus with hyperglycemia; E86.0 Dehydration; I10 Essential (primary) hypertension; F17.210 Nicotine dependence, cigarettes, uncomplicated; R00.1 Bradycardia, unspecified; K64.8 Other hemorrhoids; K62.1 Rectal polyp; Z90.49 Acquired absence of other specified parts of digestive tract; Z83.3 Family history of diabetes mellitus; Z59.00 Homelessness unspecified
CPT/HCPCS: 36415; 36569; 45385; 71045; 74177; 74181; 74250; 80053; 81001; 82378; 82962; 83690; 83735; 84100; 84132; 84443; 84478; 84484; 85025; 85610; 86803; 86850; 86900; 86901; 87081; 87340; 93005; 93017; 97110; 97116; 97163; 97530; C9113; G0378; J0330; J1100; J1815; J2250; J2405; J2543